=== PATIENT | male | born 1970 | race African-American/Black ===

== ENCOUNTER 2016-12-25 20:55 | Emergency (ER) | payer OTHER ==
[~2016-12-25] VITALS: Ht 167.6 cm; Wt 79.4 kg
[~2016-12-25 20:55] MED LIST: ADVAIR HFA 230M12 GM INH; AMLODIPINE BESY10 MG PO; ASPIRIN325 PO; ATIVAN1 M1 PO; CARBAMAZEPINE100 M1 PO; CARVEDILOL12.5 MG PO; CATAPRES-TTS 31 EACH TD; CATAPRES0.2 MG PO; DOXYCYCLINE 10100 MG PO; HYDRALAZINE 10M10 MG PO; HYDROCORTISONE PO; HYTRIN 5 M5 MG/1 CAP PO; LABETALOL 100100 MG PO; LASIX 40 MG TAB40 M2 PO; LISINOPRIL20 MG PO; METOPROLOL SUCC50 MG PO; MINOXIDIL10 MG PO; NEURONTIN100 MG PO; NIFEDICAL XL30 MG PO; NORCO 5-325 TA1 EACH PO; NORTRIPTYLINE H10 M1 PO; TRANDATE 200 M200 MG PO; VENTOLIN HFA 1818 GM INH; VITAMIN D 5050000 I1 PO; ZANAFLEX4 MG PO
[2016-12-25 21:59] LABS: ABSOLUTE NEUTROPHILS 5.8 thou/uL (1.4-8.2); BASOPHILS 1.4 % (0.0-2.0); HEMATOCRIT 29.5 % (42.0-52.0); MCH 32.2 pg (26.0-34.0); MCHC 33.9 g/dL (28.0-37.0); MCV 94.7 fL (80.0-100.0); MONOCYTES 10.2 % (1.0-8.0); PLATELET COUNT 256 thou/uL (150-400); POLYS 64.4 % (36.0-66.0); RBC 3.11 mil/uL (4.50-6.00); RDW 14.9 % (10.5-14.5)
[2016-12-25 22:01] LABS: MANUAL DIFF NO
[2016-12-25 22:07] LABS: CALCIUM 8.4 mg/dL (8.5-10.1); CREATININE 1.2 mg/dL (0.7-1.3)
[2016-12-25] MEDS ORDERED: LEVAQUIN 500 M500 M1 PO (23:03)
[2016-12-25] MEDS ORDERED: NORCO 5-325 TA1 EACH PO (23:03)
[2016-12-25 23:49] VITALS: BP 203/103
== END 2016-12-25 23:53 | disposition home or self-care (01) ==
LOC: ER 20:55
PROVIDERS: Emergency Medicine
DX: N45.1 Epididymitis (principal); I13.0 Hypertensive heart and chronic kidney disease with heart failure and stage 1 through stage 4 chronic kidney disease, or unspecified chronic kidney disease; N18.3 Chronic kidney disease, stage 3 (moderate); I50.32 Chronic diastolic (congestive) heart failure; I42.9 Cardiomyopathy, unspecified; Z86.73 Personal history of transient ischemic attack (TIA), and cerebral infarction without residual deficits; Z85.048 Personal history of other malignant neoplasm of rectum, rectosigmoid junction, and anus; Z98.61 Coronary angioplasty status; Z88.8 Allergy status to other drugs, medicaments and biological substances; Z88.6 Allergy status to analgesic agent

== ENCOUNTER 2017-03-10 17:11 | Emergency (ER) | payer OTHER ==
[~2017-03-10] VITALS: Ht 167.6 cm; Wt 79.4 kg
--- NOTE | ~2017-03-10 | EKG ---
[address] [email or web address] [address] ELECTROCARDIOGRAM REPORT Name: RODGERCELE L Room #: [facility]#: [id number] Admission: 03/10/17 Attend Phys: Discharge: 03/10/17 Date of : 72 Report #: [id number] THIS REPORT FOR: //name// [facility] ED Test Date: 2017-03-10 Test Time: 18:30:02 Pat Name: CELE SOARES Department: Room: Gender: Assistant Program Manager: MARILYN : 1970 Requested By: Cate Benitez Order Number: [id number] MD: Portillo Hand Measurements Intervals [place] Rate: 56 P: -33 TX: 208 QRS: -27 QRSD: 111 T: 28 QT: 447 QTc: 432 Interpretive Statements Sinus rhythm Borderline prolonged [place] interval Left ventricular hypertrophy Compared to ECG 12/25/2015 20:28:09 No significant changes Electronically Signed On 03-10-2017 23:07:09 CDT by Portillo Hand [email or web address] <ELECTRONICALLY SIGNED> By: Portillo Hand MD 03/10/17 2307 29 29 Portillo Hand MD /USHA
[~2017-03-10 17:11] MED LIST changes: +LEVAQUIN 500 M500 M1 PO
[2017-03-10 18:27] LABS: HEMATOCRIT 32.7 % (42.0-52.0); HEMOGLOBIN 11.1 gm/dL (14.0-18.0); MCH 32.3 pg (26.0-34.0); MCHC 34.1 g/dL (28.0-37.0); PLATELET COUNT 270 thou/uL (150-400); RBC 3.44 mil/uL (4.50-6.00); WBC 8.1 thou/uL (4.0-11.0)
[2017-03-10 18:28] LABS: MANUAL DIFF YES
[2017-03-10 18:44] LABS: ANION GAP 8 mmol/L (7-16); BUN 11 mg/dL (7-18); CALCIUM 9.2 mg/dL (8.5-10.1); CHLORIDE 104 mmol/L (98-107); CO2 26 mmol/L (21-32); CREATININE 1.2 mg/dL (0.7-1.3); GLUCOSE 82 mg/dL (74-106); POTASSIUM 3.8 mmol/L (3.5-5.1); SODIUM 138 mmol/L (136-145)
[2017-03-10 18:49] LABS: ABSOLUTE NEUTROPHILS 4.8 thou/uL (1.4-8.2); PLATELET ESTIMATE NORMAL; TOTAL CELL COUNT 100
[2017-03-10 18:56] LABS: NT-PRO BRAIN NAT PEPTIDE 324 pg/mL (<300); TROPONIN-I < 0.04 ng/mL (<0.04-0.07)
[2017-03-10 20:13] VITALS: BP 147/91
== END 2017-03-10 19:50 | disposition home or self-care (01) ==
LOC: ER 17:11
PROVIDERS: Emergency Medicine
DX: I13.0 Hypertensive heart and chronic kidney disease with heart failure and stage 1 through stage 4 chronic kidney disease, or unspecified chronic kidney disease (principal); N18.3 Chronic kidney disease, stage 3 (moderate); I50.9 Heart failure, unspecified; R10.12 Left upper quadrant pain; R51 Headache; I71.4 Abdominal aortic aneurysm, without rupture; F15.10 Other stimulant abuse, uncomplicated; Z86.73 Personal history of transient ischemic attack (TIA), and cerebral infarction without residual deficits; Z86.711 Personal history of pulmonary embolism; Z95.5 Presence of coronary angioplasty implant and graft; Z85.048 Personal history of other malignant neoplasm of rectum, rectosigmoid junction, and anus; Z88.8 Allergy status to other drugs, medicaments and biological substances; Z91.018 Allergy to other foods